=== PATIENT | male | born 1985 | race Caucasian/White ===

== ENCOUNTER 2018-11-06 18:34 | Emergency (ER) | payer MEDICAID ==
[~2018-11-06] VITALS: Ht 180.3 cm; Wt 220.0 kg
[2018-11-06] MEDS ORDERED: IBUPROFEN 600 MG TABLET PO ONE (18:45)
[2018-11-06] MEDS ORDERED: IBUPROFEN 600 MG TABLET ONE (18:48)
--- NOTE | 2018-11-06 18:48 | NUR ---
PATIENT WA SEEN BY MD. DUMONT IN PROCESS... ICE APPLIED TO INJURY
--- NOTE | 2018-11-06 19:06 | NUR ---
DC, RX AND FOLLOW UP INSTRUCTIONS GIVEN AND EXPLAINED TO PATIENT WHO STATES HE UNDERSTANDS ALL INSTRUCTIONS.
== END 2018-11-06 19:07 | disposition home or self-care (01) ==
LOC: ER 18:35
DX: S62.511A Displaced fracture of proximal phalanx of right thumb, initial encounter for closed fracture (principal); X50.0XXA Overexertion from strenuous movement or load, initial encounter; Y93.67 Activity, basketball; Y92.89 Other specified places as the place of occurrence of the external cause; Y99.8 Other external cause status
CPT/HCPCS: 73130; A4663